=== PATIENT | male | born 1965 | race African-American/Black ===

== ENCOUNTER 2019-05-19 00:34 | Emergency (ER) | payer OTHER ==
[~2019-05-19] VITALS: Ht 182.9 cm; Wt 84.8 kg
[2019-05-19 01:00] VITALS: BP 142/88
[2019-05-19] MEDS ORDERED: Piperacillin/Tazobactam 3.375 GM in NS 110 ML IVPB ONE (01:00)
[2019-05-19] MEDS ORDERED: Vancomycin 1.5 GM in NS 275 ML IVPB ONE (01:00)
--- NOTE | 2019-05-19 01:00 | NUR ---
ER Nurse Note: Pt came from home c/o dog bite in RT arm around the elbow one week ago. Unk dog, unk vaccination of dog. Pt arm swollen, able to move fingers and hand with discomfort, cap refill less than 3 secs. Warm on touch, no fever at triage. Pt moaning, stated he feels chills. No drainage from wound site. Will continue to monitor.
--- NOTE | 2019-05-19 01:03 | Emergency Room Report ---
History of Present Illness General Chief Complaint: Animal Bite Source: Patient Present Illness HPI Patient is a 54-year-old male brought in by EMS after increased right upper extremity pain. Patient reports being bitten by a dog approximately 1 week ago. He denies seeking any medical care. He reports being right-hand dominant. Reports of increased pain to the right upper extremity worse with movement. Patient denies patient cannot state what type of dog had bitten him. He reports having puncture was to his forearm and having been seen by EMS at that time. Patient reported having worsening pain and swelling to his forearm and presented. Allergies: Coded Allergies: No Known Allergies (Unverified , 05/19/19) Patient History Past Medical History: see triage record Reviewed Nursing Documentation: PMH: Agreed; PSxH: Agreed Nursing Documentation-PMH Past Medical History: No Stated History Review of Systems All Other Systems: negative except mentioned in HPI Physical Exam Vital Signs Date Time Temp Pulse Resp B/P (MAP) Pulse Ox O2 Delivery O2 Flow Rate FiO2 05/19/19 00:38 98.1 122 18 142/88 (106) 96 Room Air Sp02 EP Interpretation: reviewed, normal General Appearance: normal inspection, no apparent distress, alert, GCS 15 Head: atraumatic ENT: normal ENT inspection, hearing grossly normal, normal voice Neck: normal inspection, full range of motion, supple, no bony tend Respiratory: normal inspection, lungs clear, normal breath sounds, no respiratory distress, no retraction, no wheezing Cardiovascular #1: regular rate, rhythm Gastrointestinal: normal inspection, normal bowel sounds, non tender, soft, no guarding, no hernia Genitourinary: no CVA tenderness Musculoskeletal: back normal, swelling - right upper extremity swelling, discharge, small wounds Neurologic: normal inspection, alert, responsive, speech normal Psychiatric: normal inspection, judgement/insight normal, mood/affect normal Medical Decision Making Diagnostic Impression: Primary Impression: Right forearm cellulitis Additional Impression: Animal bite ER Course Patient presented for right forearm pain. Differential diagnosis include was not limited to foreign body, fracture, cellulitis, osteomyelitis, compartment syndrome among others. Because of complexity of patient's case laboratory testing and imaging studies were ordered. Patient was noted to have significant soft tissue swelling to his forearm. He was noted to have some slight discharge and appears to have infected forearm. Patient was given IV fluids as well as IV antibiotics. CT imaging showed no evidence of abscess or soft tissue air or fracture.Patient was noted to have some significant swelling on CT imaging.Patient was discussed with Dr. Serna for [facility] who agreed to accept the patient as transfer. Patient appears to be hemodynamically stable. Labs Test 05/19/19 01:10 05/19/19 01:50 05/19/19 02:00 Urine Color Brown Urine Appearance Clear Urine pH 5 (4.5-8.0) Urine Specific [place] 1.015 (1.005-1.035) Urine Protein 2+ (NEGATIVE) Urine Glucose (UA) Negative (NEGATIVE) Urine Ketones 1+ (NEGATIVE) Urine Blood 2+ (NEGATIVE) Urine Nitrite Negative (NEGATIVE) Urine Bilirubin Negative (NEGATIVE) Urine Urobilinogen 1 MG/DL (0.0-1.0) Urine Leukocyte Esterase 1+ (NEGATIVE) Urine RBC 2-4 /HPF (0 - 0) Urine WBC 0-2 /HPF (0 - 0) Urine Squamous Epithelial Cells Occasional /LPF Urine Bacteria Few /HPF (NONE) Urine Mucus Few /LPF (NONE/OCC) White Blood Count 18.4 K/UL (4.8-10.8) Red Blood Count 3.88 M/UL (4.70-6.10) Hemoglobin 12.3 G/DL (14.2-18.0) Hematocrit 37.2 % (42.0-52.0) Mean Corpuscular Volume 96 FL (80-99) Mean Corpuscular Hemoglobin 31.7 PG (27.0-31.0) Mean Corpuscular Hemoglobin Concent 33.0 G/DL (32.0-36.0) Red Cell Distribution Width 13.9 % (11.6-14.8) Platelet Count 368 K/UL (150-450) Mean Platelet Volume 5.3 FL (6.5-10.1) Neutrophils (%) (Auto) % (45.0-75.0) Lymphocytes (%) (Auto) % (20.0-45.0) Monocytes (%) (Auto) % (1.0-10.0) Eosinophils (%) (Auto) % (0.0-3.0) Basophils (%) (Auto) % (0.0-2.0) Differential Total Cells Counted 100 Neutrophils % (Manual) 87 % (45-75) Lymphocytes % (Manual) 8 % (20-45) Monocytes % (Manual) 5 % (1-10) Eosinophils % (Manual) 0 % (0-3) Basophils % (Manual) 0 % (0-2) Band Neutrophils 0 % (0-8) Platelet Estimate Adequate Platelet Morphology Normal Prothrombin Time 10.8 SEC (9.30-11.50) Prothromb Time International Ratio 1.0 (0.9-1.1) Activated Partial Thromboplast Time 26 SEC (23-33) Sodium Level 132 MMOL/L (136-145) Potassium Level 3.2 MMOL/L (3.5-5.1) Chloride Level 99 MMOL/L (98-107) Carbon Dioxide Level 27 MMOL/L (21-32) Anion Gap 6 mmol/L (5-15) Blood Urea Nitrogen 12 mg/dL (7-18) Creatinine 1.2 MG/DL (0.55-1.30) Estimat Glomerular Filtration Rate > 60 mL/min (>60) Glucose Level 90 MG/DL (74-106) Lactic Acid Level 1.20 mmol/L (0.4-2.0) Calcium Level 8.4 MG/DL (8.5-10.1) Total Bilirubin 0.3 MG/DL (0.2-1.0) Aspartate Amino Transf (AST/SGOT) 16 U/L (15-37) Alanine Aminotransferase (ALT/SGPT) 10 U/L (12-78) Alkaline Phosphatase 70 U/L (46-116) Troponin I 0.000 ng/mL (0.000-0.056) Total Protein 11.0 G/DL (6.4-8.2) Albumin 2.6 G/DL (3.4-5.0) Globulin 8.4 g/dL Albumin/Globulin Ratio 0.3 (1.0-2.7) Last Vital Signs Date Time Temp Pulse Resp B/P (MAP) Pulse Ox O2 Delivery O2 Flow Rate FiO2 05/19/19 00:38 98.1 122 18 142/88 (106) 96 Room Air Status: improved Disposition: XFER T-TRM HOSP Condition: Stable Burke Mauro MD May 19, 2019 01:03
[2019-05-19 01:52] LABS: APPEARANCE,URINE CLEAR; BILIRUBIN, URINE NEGATIVE (NEGATIVE); GLUCOSE, URINE (UA) NEGATIVE (NEGATIVE); KETONES,URINE 1+ (NEGATIVE); LEUKOCYTE ESTERASE ,URINE 1+ (NEGATIVE); NITRITE,URINE NEGATIVE (NEGATIVE); PH,URINE 5 (4.5-8.0); PROTEIN,URINE 2+ (NEGATIVE); UROBILINOGEN,URINE 1 MG/DL (0.0-1.0)
[2019-05-19 01:54] LABS: COLOR,URINE BROWN
[2019-05-19 01:58] LABS: HEMATOCRIT 37.2 % (42.0-52.0); HEMOGLOBIN 12.3 G/DL (14.2-18.0); MEAN CORPUSCULAR VOLUME 96 FL (80-99); PLATELET COUNT 368 K/UL (150-450); RED BLOOD COUNT 3.88 M/UL (4.70-6.10); RED CELL DISTRIBUTION WIDTH 13.9 % (11.6-14.8); WHITE BLOOD COUNT 18.4 K/UL (4.8-10.8)
[2019-05-19 01:58] LABS: ANION GAP 6 mmol/L (5-15); BLOOD UREA NITROGEN 12 mg/dL (7-18); CALCIUM 8.4 MG/DL (8.5-10.1); CARBON DIOXIDE 27 MMOL/L (21-32); CHLORIDE 99 MMOL/L (98-107); CREATININE 1.2 MG/DL (0.55-1.30); POTASSIUM 3.2 MMOL/L (3.5-5.1); SODIUM 132 MMOL/L (136-145)
[2019-05-19 02:03] LABS: ALANINE AMINOTRANSFERASE 10 U/L (12-78); ALBUMIN 2.6 G/DL (3.4-5.0); ALBUMIN/GLOBULIN RATIO 0.3 (1.0-2.7); ALKALINE PHOSPHATASE 70 U/L (46-116); ASPARTATE AMINO TRANSFERASE 16 U/L (15-37)
[2019-05-19 02:22] LABS: BILIRUBIN,TOTAL 0.3 MG/DL (0.2-1.0)
--- NOTE | 2019-05-19 02:59 | Diagnostic Imaging Report ---
Indication: Dog bite/laceration penetrating injury right forearm Technique: Continuous helical transaxial imaging of the right forearm was obtained after intravenous contrast administration.. Coronal 2-D reformats were also obtained. Total Dose length Product (DLP): [address] Dose Index Volume (CTDIvol): 0.15, 6.04 mGy Comparison: none Findings: There is severe stenosis subcutaneous edema demonstrated within the forearm. The edema is somewhat contiguous with the posterior or dorsal part of the forearm muscles which are ill-defined on this study. There is no subcutaneous or intramuscular abscess identified. There is no soft tissue air or radiopaque foreign body identified. The bones are unremarkable. There is no obvious intrafascial fluid or abscess within the anterior posterior compartments of the arm. The fat planes are preserved within the muscular compartments. Subtle myositis may be difficult to evaluate on this examination and in general MRI is much better for assessment of myositis. IMPRESSION: Diffuse subcutaneous edema related to recent dogbite. This could be a manifestation of cellulitis and infection. There is no abscess identified. Note: The intramuscular compartments appear relatively normal on this examination. Compartment syndrome is a clinical diagnosis and imaging may corroborate this diagnosis if there is evidence of intramuscular abscess, abnormal fascial enhancement, attenuation of the interfascial fat or signs of myositis. No such findings are seen on this examination. Having said that, MRI is more sensitive than CT in this regard. If there is clinical suspicion of compartment syndrome, MRI with gadolinium is recommended. The CT scanner at [facility] is accredited by the [employer] and the scans are performed using dose optimization techniques as appropriate to a performed exam including Automatic Exposure control.
--- NOTE | 2019-05-19 03:45 | NUR ---
spoke with Dr. Zamudio who accepted the transfer. Registration notified.
[2019-05-19 05:00] VITALS: BP 142/90
--- NOTE | 2019-05-19 05:46 | NUR ---
ER Nurse Note: Spoke with CHRISTAL Black at [facility] to give report; was told they are not accepting pts and was confirmed with the charge nurse on that unit. Informed registration and LATESHA Quintana. Pt signed consent for transfer and is aware. Pt OSMIN, a&ox4. IV LT AC; patent. All safety measures met; will continue to [facility].
--- NOTE | 2019-05-19 05:52 | NUR ---
ER Nurse Note: Called Nurse Barrel Handler to give report; did not answer and left voicemail. Pt asleep, no signs of distress, VSS. All safety measures met; will continue to [facility]. Addendum: 05/19/19 at 0557 by [email or web address] ER Nurse Note: Cooling measures initated; ice packs placed, tylenol given, removed extra blankets. Temp rechecked 98.1F oral.
--- NOTE | 2019-05-19 06:16 | NUR ---
ER Nurse Note: [place] given to Nurse George Cline at [facility] for conitnutiy of care. Awaiting transportation. Pt calm, cooperative, no signs of distress. Will continue to [facility].
--- NOTE | 2019-05-19 07:12 | NUR ---
ER Nurse Note: Report given to CHRISTAL Huynh for continuity of care.
--- NOTE | 2019-05-19 07:19 | NUR ---
ED Nurse Note: Report received from CHRISTAL Pichardo. Pt in bed alert and awake, AOx4, does not complain of pain. No sign of acute distress.
[2019-05-19 07:33] VITALS: BP 132/79
[2019-05-19 07:44] VITALS: BP 132/79
--- NOTE | 2019-05-19 07:44 | NUR ---
ED Nurse Note: Ambulance personels at bedside for transportation. Vital signs stable.
== END 2019-05-19 07:44 | disposition short-term general hospital (02) ==
LOC: EDUNIT# 00:34 → EDBD 00:34 → EMR 01:00
DX: L03.113 Cellulitis of right upper limb (principal); S41.151A Open bite of right upper arm, initial encounter; W54.0XXA Bitten by dog, initial encounter; Y92.9 Unspecified place or not applicable
CPT/HCPCS: 36415; 73201; 80053; 81001; 83605; 84484; 85007; 85025; 85610; 85730; 86850; 86900; 86901; 87040; 96365; 96366; 96367; 99284; J2543; J3370; J7050; Q9967